=== PATIENT | female | born 1945 | race African-American/Black ===

== ENCOUNTER 2017-01-16 09:49 | Observation (INO) | payer MEDICARE, MEDICAID ==
[~2017-01-16 09:49] MED LIST: COREG6.25 M1 PO; CORTEF20 M1 PO; CRESTOR40 MG/TAB PO; FOLIC ACID1 M1 PO; LANTUS100 UNITS/ SC; LASIX20 M1 PO; LIDODERM1 EACH TP; LYRICA150 MG/CAP PO; MECLIZINE HCL25 M3 PO; METFORMIN HCL500 M3 PO; NOVOLOG100 UNITS/ SC; OMEPRAZOLE20 M4 PO; PLAQUENIL200 M1 PO; POTASSIUM CHLO20 ME3 PO; REQUIP1 M1 PO; SYNTHROID75 MC1 PO; TOPROL XL50 M1 PO; TYLENOL325 M2 PO; ULTRAM50 M1 PO; VITAMIN D50000 UNI2 PO; WELLBUTRIN XL300 M3 PO; ZETIA10 M1 PO
[2017-01-16] MEDS ORDERED: NORCO 5-325 TA1 EACH PO (10:17)
[2017-01-16] MEDS ORDERED: COREG6.25 M1 PO (10:17)
[2017-01-16] MEDS ORDERED: ADVAIR 25028 BLISTE1 INH (10:18)
[2017-01-16] MEDS ORDERED: SYNTHROID75 MC1 PO (10:18)
[2017-01-16 10:23] LABS: URINE BILIRUBIN NEGATIVE (NEG); URINE BLOOD NEGATIVE (NEG); URINE GLUCOSE (UA) NEGATIVE (NEG); URINE KETONE NEGATIVE (NEG); URINE LEUKOCYTE ESTERASE NEGATIVE (NEG); URINE NITRITE NEGATIVE (NEG); URINE PROTEIN SMALL (NEG)
[2017-01-16 10:24] LABS: URINE APPEARANCE CLEAR; URINE COLOR PALE YELLOW
[2017-01-16 10:29] LABS: URINE EPITHELIAL CELLS 0-2 /[HPF] (0-10); URINE RBC 0 /[HPF] (0-5); URINE WBC RARE /[HPF] (0-5)
[2017-01-16 10:41] LABS: BASO % 1.8 % (0-2); BASO ABSOLUTE COUNT 0.2 tho/cmm (0.0-0.2); EOS % 1.1 % (0-7); EOSINOPHIL ABSOLUTE COUNT 0.1 tho/cmm (0.0-0.7); HGB-HEMOGLOBIN 12.9 gm/dl (12.0-15.5); LYMPH % 50.2 % (20-45); LYMPH ABSOLUTE COUNT 4.2 tho/cmm (0.8-4.5); MCH (MEAN CORPUSCULAR HGB) 23.3 pg (28.0-32.0); MCHC MEAN CORPUSCULAR HGB CONC 31.5 % (32.0-36.0); MEAN PLATELET VOLUME 11.1 cmc (9.4-12.4); MONO % 11.9 % (0-12); NEUTROPHIL ABSOLUTE COUNT 2.9 tho/cmm (1.6-8.0); NEUTROPHIL-AUTOMATED 2.9 tho/cmm (1.6-8.0); PLATELET COUNT 388 tho/cmm (150-450); RED BLOOD COUNT 5.54 mil/cmm (4.00-5.20); RED CELL DISTRIBUTION WIDTH 17.9 % (12.4-16.4); WHITE BLOOD COUNT 8.3 tho/cmm (4.0-10.0)
[2017-01-16 10:56] LABS: ANION GAP 13 mmol/L (0-20); BLOOD UREA NITROGEN 14 mg/dl (6-24); CALCIUM 11.4 mg/dl (8.5-10.5); CARBON DIOXIDE-VENOUS 27 mmol/L (22-32); CHLORIDE 101 mmol/l (96-110); CREATININE 1.51 mg/dl (0.50-1.10); GLUCOSE 144 mg/dL (70-110); POTASSIUM 3.7 mmol/L (3.7-5.1); SODIUM 137 mmol/L (135-145); eGFR VALUE FOR BLACK 41 mL/Min
[2017-01-16] MEDS ORDERED: ASPIRIN EC81 MG PO (14:33)
[2017-01-16] MEDS ORDERED: CORTEF5 M1 PO ×2 (14:44→14:45)
[2017-01-16] MEDS ORDERED: MECLIZINE HCL12.5 M3 PO (14:45)
[2017-01-16] MEDS ORDERED: CRESTOR40 MG/TAB PO (14:45)
[2017-01-16] MEDS ORDERED: LASIX20 M1 PO (14:45)
[2017-01-16] MEDS ORDERED: LYRICA150 MG/CAP PO (14:46)
[2017-01-16] MEDS ORDERED: REQUIP1 M1 PO (14:46)
[2017-01-16] MEDS ORDERED: BUPROPION XL300 M1 PO (14:47)
[2017-01-16] MEDS ORDERED: PLAQUENIL200 M1 PO (14:47)
[2017-01-16] MEDS ORDERED: NOVOLOG100 UNITS/ SC (14:49)
[2017-01-16] MEDS ORDERED: LANTUS100 UNITS/ SC (14:51)
[2017-01-16] MEDS ORDERED: ULTRAM50 M1 PO ×2 (14:51)
[2017-01-17 06:15] LABS: ANION GAP 13 mmol/L (0-20); BLOOD UREA NITROGEN 10 mg/dl (6-24); CALCIUM 9.5 mg/dl (8.5-10.5); CARBON DIOXIDE-VENOUS 25 mmol/L (22-32); CHLORIDE 105 mmol/l (96-110); CREATININE 1.33 mg/dl (0.50-1.10); GLUCOSE 208 mg/dL (70-110); POTASSIUM 3.1 mmol/L (3.7-5.1); SODIUM 140 mmol/L (135-145); eGFR VALUE FOR BLACK 48 mL/Min
[2017-01-17 13:51] LABS: TSH-THYROID STIMULATING HORM. 0.36 uIU/ml (0.40-3.80)
[2017-01-19 09:53] LABS: ANION GAP 9 mmol/L (0-20); BLOOD UREA NITROGEN 8 mg/dl (6-24); CALCIUM 8.5 mg/dl (8.5-10.5); CARBON DIOXIDE-VENOUS 31 mmol/L (22-32); CHLORIDE 102 mmol/l (96-110); CREATININE 1.28 mg/dl (0.50-1.10); GLUCOSE 237 mg/dL (70-110); POTASSIUM 3.4 mmol/L (3.7-5.1); SODIUM 139 mmol/L (135-145); eGFR VALUE FOR BLACK 50 mL/Min
[2017-01-22 05:00] LABS: ANION GAP 11 mmol/L (0-20); BLOOD UREA NITROGEN 13 mg/dl (6-24); CALCIUM 8.1 mg/dl (8.5-10.5); CARBON DIOXIDE-VENOUS 27 mmol/L (22-32); CHLORIDE 108 mmol/l (96-110); CREATININE 1.16 mg/dl (0.50-1.10); GLUCOSE 323 mg/dL (70-110); POTASSIUM 3.6 mmol/L (3.7-5.1); SODIUM 142 mmol/L (135-145); eGFR VALUE FOR BLACK 55 mL/Min
[2017-07-15] MEDS ORDERED: TYLENOL325 M2 PO (13:54)
[2017-07-15] MEDS ORDERED: DULCOLAX10 MG RC (13:55)
[2017-07-15] MEDS ORDERED: CALCIUM CARBON500 M2 PO (13:55)
[2017-07-15] MEDS ORDERED: FREESTYLE LITE MC (13:56)
[2017-07-15] MEDS ORDERED: ZETIA10 M1 PO (13:56)
[2017-07-15] MEDS ORDERED: COLCRYS0.6 M1 PO (13:56)
[2017-07-15] MEDS ORDERED: CORTEF20 M1 PO (13:57)
[2017-07-15] MEDS ORDERED: SYNTHROID75 MC1 PO (13:58)
[2017-07-15] MEDS ORDERED: MELATONIN1 M2 PO (13:58)
[2017-07-15] MEDS ORDERED: OMEPRAZOLE20 M3 PO (13:59)
[2017-07-15] MEDS ORDERED: MILK OF MAGNESIA PO (13:59)
[2017-07-15] MEDS ORDERED: MIRALAX17 G2 PO (13:59)
[2017-07-15] MEDS ORDERED: POTASSIUM CHLO20 ME3 PO (14:00)
[2017-07-15] MEDS ORDERED: [UNRECOGNIZED DRUG - OTHER] MC (14:01)
[2017-07-15] MEDS ORDERED: VITAMIN D250000 UNI1 PO (14:01)
== END 2017-01-26 12:00 ==
LOC: EDMED 09:49 → EMR2 15:15 → CAR1 19:00
PROVIDERS: Emergency Medicine; Family Medicine; Physician Assistant; ADMIT Hospitalist
DX: R53.1 Weakness (principal); E27.1 Primary adrenocortical insufficiency; I95.1 Orthostatic hypotension; E11.22 Type 2 diabetes mellitus with diabetic chronic kidney disease; E11.65 Type 2 diabetes mellitus with hyperglycemia; I13.0 Hypertensive heart and chronic kidney disease with heart failure and stage 1 through stage 4 chronic kidney disease, or unspecified chronic kidney disease; N18.9 Chronic kidney disease, unspecified; I50.22 Chronic systolic (congestive) heart failure; N17.9 Acute kidney failure, unspecified; E11.40 Type 2 diabetes mellitus with diabetic neuropathy, unspecified; M50.322 Other cervical disc degeneration at C5-C6 level; M51.36 Other intervertebral disc degeneration, lumbar region; M06.9 Rheumatoid arthritis, unspecified; F03.90 Unspecified dementia, unspecified severity, without behavioral disturbance, psychotic disturbance, mood disturbance, and anxiety; I42.9 Cardiomyopathy, unspecified; E03.9 Hypothyroidism, unspecified; F41.8 Other specified anxiety disorders; R55 Syncope and collapse; Z79.4 Long term (current) use of insulin; Z79.82 Long term (current) use of aspirin; Z79.899 Other long term (current) drug therapy; Z88.8 Allergy status to other drugs, medicaments and biological substances; Z95.810 Presence of automatic (implantable) cardiac defibrillator; Z96.642 Presence of left artificial hip joint; Z96.611 Presence of right artificial shoulder joint; W18.39XA Other fall on same level, initial encounter
CPT/HCPCS: G0378; G8978-GO-CK; G8978-GP-CI; G8979-GO-CJ; G8979-GP-CI; G8980-GP-CI; G8987-GO-CK; G8988-GO-CJ; G8989-GO-CJ; J1815; J7030; P9612